=== PATIENT | male | born 1990 | race Caucasian/White ===

== ENCOUNTER 2017-01-15 18:24 | Emergency (ER) | payer OTHER ==
[2017-01-15 18:45] VITALS: BP 153/87
--- NOTE | 2017-01-15 19:06 | UC ---
General HPI - HPI Summary HPI Summary: The patient comes in today for: 1. STD exposure (chlamydia): Onset: Exposure about 1.5 months ago. Palliative/provocative: NOne. Quality: No dysuria Region: Severity: 0/10 Time: No symptoms. Associated symptoms: Event: The patient was with a female contact for about a month about 1.5 months ago. He did not notice any problem with him or her. He was recently contacted by her that she had Chlamydia. He has no dysuria or discharge. No sore throat. * - History of Current Complaint [facility] St[facility] Complaint: PERSONAL Time Seen by Provider: 01/15/17 18:58 Hx Obtained From: Patient - Allergy/Home Medications Allergies/Adverse Reactions: Allergies Allergy/AdvReac Type Severity Reaction Status Date / Time No Known Allergies Allergy Verified 01/15/17 18:39 Home Medications: Home Medications NK [No Home Medications Reported] 01/15/17 [History Confirmed 01/15/17] PMH/Surg Hx/FS Hx/Imm Hx Previously Healthy: Yes - Surgical History Surgical History: None - Family History Known Family History: Positive: Unknown - He was adopted with no medical information other than his father MD., Cardiac Disease - Social History Occupation: Employed Full-time Alcohol Use: Occasionally Substance Use Type: Marijuana Substance Use Comment - Amount & Last Used: last used last night Smoking Status (MU): Heavy Every Day Tobacco Smoker Type: Cigarettes Amount Used/How Often: 1 PPD Length of Time of Smoking/Using Tobacco: 14 YRS Review of Systems Constitutional: Negative Skin: Negative Eyes: Negative ENT: Negative Respiratory: Negative Cardiovascular: Negative Gastrointestinal: Negative All Other Systems Reviewed And Are Negative: Yes Physical Exam Triage Information Reviewed: Yes Appearance: Well-Appearing, No Pain Distress, Well-Nourished Vital Signs: Initial Vital Signs Temp 99.7 F 01/15/17 18:39 Pulse 92 01/15/17 18:39 Resp 16 01/15/17 18:39 BP 153/87 01/15/17 18:39 Pulse Ox 99 01/15/17 18:39 Vital Signs Reviewed: Yes Eyes: Positive: Conjunctiva Clear. Negative: Discharge ENT: Positive: Hearing grossly normal. Negative: Pharyngeal erythema, Nasal congestion, Nasal drainage, TM bulging, TM dull, TM red, Tonsillar swelling, Tonsillar exudate Dental: Negative: Gross Decay/Caries @, Dental Fracture @ Neck: Positive: Supple, Nontender, No Lymphadenopathy. Negative: Nuchal Rigidity Respiratory: Positive: Lungs clear, No respiratory distress, No accessory muscle use. Negative: Crackles, Wheezing Cardiovascular: Positive: RRR, No Murmur Abdomen Description: Positive: Nontender, No Organomegaly, Soft. Negative: Distended, Guarding Musculoskeletal: Positive: Strength Intact, ROM Intact Neurological: Positive: Alert, Muscle Tone Normal Psychological: Positive: Age Appropriate Behavior, Consolable Skin: Negative: rashes, breakdown UC Physical Exam Vital Signs On Initial Exam: Initial Vitals Temp Pulse Resp BP Pulse Ox 99.7 F 92 16 153/87 99 01/15/17 18:39 01/15/17 18:39 01/15/17 18:39 01/15/17 18:39 01/15/17 18:39 - Genitalia Exam Male Genitalia: Not Circumcised, Other - Penis: No lesions of the penis, or foreskin, scrotum, no discharge Scrotum: NO lesions. No tenderness or swelling of the testicles. Diagnostics - Laboratory Diagnostic Studies Completed/Ordered: Patient is getting HIV, Syphilis, GC and chlamydia done. Course/Dx - Differential Dx - Multi-Symptom Provider Diagnoses: STD (chlymdia) exposure Discharge - Discharge Plan Condition: Stable Disposition: HOME Patient Education Materials: Sexually Transmitted Diseases (ED), Safe Sex (ED) , Condom Use (ED) Additional Instructions: Please call our office for test results on: 1. Gonorrhea 2. Chlaymdia 3. Syphilis 4. HIV Do not have sex with anyone until all testing is completed and if positive full treatment given. IF there are any new symptoms, please be seen again.
[2017-01-18 10:33] LABS: Syphilis Index < 0.1 Index
== END 2017-01-15 19:30 | disposition home or self-care (01) ==
LOC: UCCORT 18:24
DX: Z20.2 Contact with and (suspected) exposure to infections with a predominantly sexual mode of transmission (principal); F17.210 Nicotine dependence, cigarettes, uncomplicated
CPT/HCPCS: 36415; 86592; 87491; 87591; 99211; G0463

== ENCOUNTER 2017-07-04 17:32 | Emergency (ER) | payer OTHER ==
[2017-07-04 17:45] VITALS: BP 141/81
--- NOTE | 2017-07-04 17:55 | UC ---
Skin Complaint HPI - HPI Summary HPI Summary: C/O lumg on the back of the scalp intermittantly draining white pus like material. Last drained 2-3 weeks ago. - History of Current Complaint Chief Complaint: [facility] Stated Complaint: BUMP ON HEAD Hx Obtained From: Patient Onset/Duration: Gradual Onset, Still Present Timing: Constant - with slow swelling until it drains the sebum again. Onset Severity: Mild Current Severity: Mild Pain Intensity: 0 Location: Discrete - occipital scalp Character: Raised Aggravating Factor(s): Nothing Alleviating Factor(s): Nothing Associated Signs & Symptoms: Positive: Drainage. Negative: Nausea, Vomiting, Fever, Chills - Allergy/Home Medications Allergies/Adverse Reactions: Allergies Allergy/AdvReac Type Severity Reaction Status Date / Time No Known Allergies Allergy Verified 07/04/17 17:45 Review of Systems Is Patient Immunocompromised?: No All Other Systems Reviewed And Are Negative: Yes PMH/Surg Hx/FS Hx/Imm Hx Previously Healthy: Yes - Surgical History Surgical History: None - Family History Known Family History: Positive: Unknown - adopted, Cardiac Disease - Social History Occupation: Employed Full-time Lives: With Family Alcohol Use: Occasionally Substance Use Type: Marijuana Substance Use Comment - Amount & Last Used: last used last night Smoking Status (MU): Heavy Every Day Tobacco Smoker Type: Cigarettes Amount Used/How Often: 1 PPD Length of Time of Smoking/Using Tobacco: 15 YRS Cessation Counseling: Patient Advised to Stop Physical Exam Triage Information Reviewed: Yes Appearance: Well-Appearing, No Pain Distress, Well-Nourished Vital Signs: Initial Vital Signs Temp 98.4 F 07/04/17 17:40 Pulse 96 07/04/17 17:40 Resp 16 07/04/17 17:40 BP 141/81 07/04/17 17:40 Pulse Ox 99 07/04/17 17:40 Vital Signs Reviewed: Yes ENT Exam: Normal Neck exam: Normal Respiratory Exam: Normal Cardiovascular Exam: Normal Musculoskeletal Exam: Normal Neurological Exam: Normal Psychological Exam: Normal Skin: Positive: significant lesion(s) - on the right occipital scalp 2.5cm sebaceous cyst with central punctum. Course/Dx - Differential Diagnoses - Skin Complaint Differential Diagnoses: Abscess, Local Allergic Reaction, Other - cyst - Diagnoses Provider Diagnoses: Sebaceous cyst occipital scalp Discharge - Discharge Plan Condition: Stable Disposition: HOME Patient Education Materials: Epidermal Inclusion Cysts (ED), Cyst (ED) Referrals: Non Staff,Doctor [Primary Care Provider] - Timmy Vasquez MD [Medical Doctor] - (Call his office for an appointment to have the cyst excised.)
== END 2017-07-04 18:09 | disposition home or self-care (01) ==
LOC: UCCORT 17:32
DX: L72.3 Sebaceous cyst (principal); F12.90 Cannabis use, unspecified, uncomplicated; F17.210 Nicotine dependence, cigarettes, uncomplicated
CPT/HCPCS: 99211; G0463

== ENCOUNTER 2019-04-25 14:20 | Emergency (ER) | payer OTHER ==
[2019-04-25 15:00] VITALS: BP 120/83
--- NOTE | 2019-04-25 15:10 | UC ---
Throat Pain/Nasal Alec HPI - HPI Summary HPI Summary: 29-year-old male comes in with chief complaint of upper respiratory tract infection symptoms for 2 days. He's had a runny nose sore throat. No ear pain. He's had some chills believes he's had fevers. Took some Tylenol which did help with symptom. No wheezing or shortness of breath. - History of Current Complaint Chief Complaint: [facility]Illness Stated Complaint: CONGESTION Time Seen by Provider: 04/25/19 15:01 Pain Intensity: 0 - Allergies/Home Medications Allergies/Adverse Reactions: Allergies Allergy/AdvReac Type Severity Reaction Status Date / Time No Known Allergies Allergy Verified 04/25/19 15:00 PMH/Surg Hx/FS Hx/Imm Hx Previously Healthy: Yes - Surgical History Surgical History: None - Family History Known Family History: Positive: Unknown - adopted, Cardiac Disease - Social History Alcohol Use: Occasionally Substance Use Type: Marijuana Substance Use Comment - Amount & Last Used: last used last night Smoking Status (MU): Heavy Every Day Tobacco Smoker Type: Cigarettes Amount Used/How Often: 1 PPD Length of Time of Smoking/Using Tobacco: 15 YRS Review of Systems All Other Systems Reviewed And Are Negative: Yes Constitutional: Positive: Fever Skin: Positive: Negative Eyes: Positive: Negative ENT: Positive: Sore Throat, Nasal Discharge, Sinus Congestion Respiratory: Positive: Negative Cardiovascular: Positive: Negative Gastrointestinal: Positive: Negative Motor: Positive: Negative Neurovascular: Positive: Negative Musculoskeletal: Positive: Negative Neurological: Positive: Negative Psychological: Positive: Negative Is Patient Immunocompromised?: No Physical Exam Triage Information Reviewed: Yes Appearance: No Pain Distress, Well-Nourished, Ill-Appearing - MILD Vital Signs: Initial Vital Signs Temp 99.4 F 04/25/19 14:58 Pulse 93 04/25/19 14:58 Resp 16 04/25/19 14:58 BP 120/83 04/25/19 14:58 Pulse Ox 100 04/25/19 14:58 Vital Signs Reviewed: Yes Eye Exam: Normal Eyes: Positive: Conjunctiva Clear ENT: Positive: Pharyngeal erythema, Nasal congestion, Nasal drainage, TMs normal Neck: Positive: Supple Respiratory: Positive: Lungs clear, Normal breath sounds, No respiratory distress Cardiovascular: Positive: RRR Musculoskeletal: Positive: Strength Intact, ROM Intact Neurological: Positive: Alert, Muscle Tone Normal Psychological: Positive: Normal Response To Family, Age Appropriate Behavior Skin Exam: Normal Throat Pain/Nasal Course/Dx - Course Course Of Treatment: DISCUSSED VIRAL VERSES BACTERIAL INFECTIONS AND THE ROLE OF ANTIBIOTIC. PATIENT PREFERS TO BE ON ANTIBIOTICS AT THIS TIME. - Differential Dx/Diagnosis Provider Diagnosis: Upper respiratory infection Discharge ED - Sign-Out/Discharge Documenting (check all that apply): Patient Departure All imaging exams completed and their final reports reviewed: No Studies - Discharge Plan Condition: Stable Disposition: HOME Prescriptions: Amoxicillin PO (*) [Amoxicillin 875 MG (*)] 875 mg PO BID #20 tab Patient Education Materials: Upper Respiratory Infection (ED) Forms: *Work Release Referrals: [facility] [Outside] Additional Instructions: FOLLOW UP WITH YOUR DOCTOR IF NOT COMPLETELY IMPROVED. GET RECHECKED SOONER IF WORSE OR ANY QUESTIONS OR CONCERNS. - Billing Disposition and Condition Condition: STABLE Disposition: Home
== END 2019-04-25 15:18 | disposition home or self-care (01) ==
LOC: UCCORT 14:20
DX: J06.9 Acute upper respiratory infection, unspecified (principal); F17.210 Nicotine dependence, cigarettes, uncomplicated
CPT/HCPCS: 99212; G0463